=== PATIENT | female | born 1950 | race African-American/Black ===

== ENCOUNTER 2017-05-02 15:55 | Inpatient (IN) | payer OTHER ==
[2017-05-02 18:06] VITALS: BMI 38.7
--- NOTE | 2017-05-02 19:45 | HP ---
Admission [facility] Chief Complaint: I am here for rehab Allergies/Adverse Reactions: Allergies Allergy/AdvReac Type Severity Reaction Status Date / Time Penicillins Allergy Unknown Verified 08/19/11 08:49 quetiapine fumarate Allergy Unknown Verified 08/19/11 08:50 [From Seroquel] History of Present Illness: 66 yo female with hx of alcohol and crack / cocaine dependence. Reports completed detox at [facility] 04/25/17 -05/02/17. PMHX: COPD, DM II, HTN , OA, abdominal hernia, HIV + reports never been on medication. Denies any psychiatric history. Reports hx surgery 02/14/17 for abdominal obstruction currently wears a belly band. Longest period sobriety 5 1/2 years. Denies suicidal / homicidal ideation or suicide attempts. Exam Limitations: No Limitations - Ebola screening Have you traveled outside of the country in the last 21 days: No (N) Have you had contact with anyone from an Ebola affected area: No Have you been sick,other than usual withdrawal symptoms: No Do you have a fever: No - Review of Systems Constitutional: Weakness, Unintentional Wgt. Loss (from surgery on 02/14/17, lost about 30 lbs so far) EENT: reports: Cataracts, Blurred Vision, Other (wears glasses) Respiratory: reports: Shortness of Breath (with stress, when walking fast) Cardiac: reports: No Symptoms Reported GI: reports: No Symptoms Reported : reports: No Symptoms Reported Musculoskeletal: reports: Back Pain, Joint Pain (left knee pending knee replacement), Other (neck from OA) Integumentary: reports: No Symptoms Reported Neuro: reports: No Symptoms reported Endocrine: reports: Change in Weight Hematology: reports: No Symptoms Reported Psychiatric: reports: Orientated x3 Other Systems: Reviewed and Negative Patient History - Patient Medical History Hx Anemia: No Hx Asthma: No Hx Chronic Obstructive Pulmonary Disease (COPD): No Hx Cancer: No Hx Cardiac Disorders: No Hx Congestive Heart Failure: No Hx Hypertension: Yes (Hx of HTN on meds.) Hx Hypercholesterolemia: Yes Hx Pacemaker: No HX Cerebrovascular Accident: No Hx Seizures: No Hx Dementia: Yes Hx Diabetes: Yes (On meds.,) Hx Gastrointestinal Disorders: Yes (Acid reflux) Hx Liver Disease: Yes (Hep C) Hx Genitourinary Disorders: No Hx Sexually Transmitted Disorders: 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) Hx Renal Disease (ESRD): No Hx Thyroid Disease: No Hx Human Immunodeficiency Virus (HIV): No Hx Hepatitis C: Yes Hx Depression: Yes (Not in tx) Hx Suicide Attempt: No Hx Bipolar Disorder: No Hx Schizophrenia: No - Patient Surgical History Past Surgical History: Yes Hx Neurologic Surgery: No Hx Cataract Extraction: No Hx Cardiac Surgery: No Hx Lung Surgery: No Hx Breast Surgery: No Hx Breast Biopsy: No Hx Abdominal Surgery: Yes (Total hysterectomy in 1995 from Cervical CA) Hx Appendectomy: No Hx Cholecystectomy: No Hx Genitourinary Surgery: No Hx Orthopedic Surgery: Yes (Fx L femur in 1988 sx with metal tej) Anesthesia Reaction: No - PPD History Previous Implant?: No Documented Results: Negative w/proof PPD to be Administered?: No - Reproductive History Last Menstrual Period: 09/09/95 - Smoking Cessation Smoking history: Former smoker Have you smoked in the past 12 months: No Hx Chewing Tobacco Use: No Initiated information on smoking cessation: No - Substance & Tx. History Hx Alcohol Use: Yes Hx Substance Use: Yes Substance Use Type: Alcohol, Cocaine Hx Substance Use Treatment: Yes ([facility] - 05/02/17) Family Disease History - Family Disease History Family History: Unable to Obtain (reports no family hx) Admission Physical Exam [facility] - Vital Signs Vital Signs: Vital Signs - 24 hr 05/02/17 18:00 Temperature 97.5 F L Pulse Rate 78 Respiratory 18 Rate Blood Pressure 135/80 - Physical General Appearance: Yes: No Apparent Distress, Nourished, Appropriately Dressed , Obese HEENTM: Yes: EOMI, Hearing grossly Normal, Normal ENT Inspection, Normocephalic , Normal Voice, FERNIE, Pharynx Normal, Tm's normal, Other (wears glasses) Respiratory: Yes: Chest Non-Tender, Lungs Clear, Normal Breath Sounds, No Respiratory Distress, No Accessory Muscle Use Neck: Yes: No masses,lesions,Nodules, Trachea in good position Breast: Yes: Breast Exam Deferred Cardiology: Yes: Regular Rhythm, Regular Rate, S1, S2 Abdominal: Yes: Hernia (abdominal, wears belly hand for support), Surgical Scar (mid abdomen) Genitourinary: Yes: Within Normal Limits Back: Yes: Normal Inspection Musculoskeletal: Yes: Back pain, Other (gait unsteady, chronic neck pain , right knee pain and low back pain d/t OA) Extremities: Yes: Normal Range of Motion, Non-Tender 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, Fully Oriented, Alert, Motor Strength 5/5, Normal Mood/Affect, Normal Response Integumentary: Yes: Normal Color, Dry, Warm Lymphatic: Yes: Within Normal Limits - Diagnostic (1) HIV (human immunodeficiency virus infection) Current Visit: Yes Status: Chronic (2) Osteoarthritis Current Visit: Yes Status: Chronic Qualifiers: Osteoarthritis location: knee Laterality: right (3) Use of cane as ambulatory aid Current Visit: Yes Status: Chronic (4) Abdominal hernia Current Visit: Yes Status: Chronic Qualifiers: Hernia type: other abdominal hernia Obstruction and gangrene presence: without obstruction or gangrene Qualified Code(s): K45.8 - Other specified abdominal hernia without obstruction or gangrene (5) Diabetes mellitus type 2 in obese Current Visit: Yes Status: Chronic (6) Hypertension Current Visit: Yes Status: Chronic Qualifiers: Hypertension type: essential hypertension Qualified Code(s): I10 - Essential (primary) hypertension (7) COPD (chronic obstructive pulmonary disease) Current Visit: Yes Status: Chronic Qualifiers: COPD type: unspecified COPD Qualified Code(s): J44.9 - Chronic obstructive pulmonary disease, unspecified (8) Hyperlipidemia Current Visit: Yes Status: Chronic Qualifiers: Hyperlipidemia type: unspecified Qualified Code(s): E78.5 - Hyperlipidemia , unspecified (9) Alcohol dependence Current Visit: Yes Status: Chronic Qualifiers: Substance use status: uncomplicated Qualified Code(s): F10.20 - Alcohol dependence, uncomplicated (10) Cocaine dependence Current Visit: Yes Status: Chronic BHS Breath Alcohol Content Breath Alcohol Content: 0 Urine Pregancy Test - Result Urine Test Results: Negative- NO Line Present Urine Drug Screen - Results Drug Screen Negative: No Urine Drug Screen Results: BZO-Benzodiazepines, TCA-Tricyclic Antidepress Inpatient Rehab Admission - Initial Determination Are CD services needed?: Yes Free of communicable disease: Yes Not in need of hospitalization: Yes - Rehab Admission Criteria Previous failed treatment: Yes Poor recovery environment: Yes Lacks judgement: Yes
[2017-05-02] MEDS ORDERED: MENTHOL/PHENOL 1 EACH UD MM PRN (20:02)
[2017-05-02] MEDS ORDERED: MAGNESIUM CITRATE 300 ML BOTTLE PO PRN (20:02)
[2017-05-02] MEDS ORDERED: IBUPROFEN 400 MG TABLET (FP) PO PRN (20:02)
[2017-05-02] MEDS ORDERED: P-EPHED 60MG/TRIPROLIDI 2.5MG TABLET PO PRN (20:02)
[2017-05-02] MEDS ORDERED: guaiFENesin/D-METHORPHAN HB 10 ML UNIT-DOSE CUPS PO PRN (20:02)
[2017-05-02] MEDS ORDERED: ALBUTEROL SO4 18 GM HFA INHALER IH SCH (20:15)
[2017-05-02] MEDS: THIAMINE HCL 100 MG TABLET (FP) PO SCH (22:57)
[2017-05-02] MEDS: hydrOXYzine PAMOATE 50 MG CAPSULE (FP) PO PRN (22:58)
[2017-05-02 23:56] LABS: URINE APPEARANCE CLEAR; URINE BILIRUBIN NEGATIVE (NEGATIVE); URINE BLOOD NEGATIVE (NEGATIVE); URINE COLOR YELLOW; URINE GLUCOSE (UA) NEGATIVE (NEGATIVE); URINE KETONE NEGATIVE (NEGATIVE); URINE LEUK ESTERASE NEGATIVE (NEGATIVE); URINE NITRITE NEGATIVE (NEGATIVE); URINE PROTEIN NEGATIVE (NEGATIVE)
[2017-05-03] MEDS: metFORMIN HCL 500 MG TABLET (FP) PO SCH ×2 (06:48→16:57)
[2017-05-03] MEDS: PRENATAL VITAMINS W/ FOLIC ACID TABLET (FP) PO SCH (09:14)
[2017-05-03] MEDS: HYDROCHLOROTHIAZIDE 25 MG TABLET (FP) PO SCH (09:15)
[2017-05-03] MEDS: ACETAMINOPHEN 325 MG TABLET (FP) PO PRN (09:16)
[2017-05-03] MEDS ORDERED: PT OWN MED DRAWER 7, Y5N ONE (09:36)
[2017-05-03 10:13] LABS: HEMATOCRIT 41.5 % (32.4-45.2); HEMOGLOBIN 13.6 GM/dL (10.7-15.3); MCH 29.8 pg (25.7-33.7); MCHC 32.7 g/dl (32.0-36.0); MEAN PLT VOLUME 8.9 fl (7.5-11.1); PLATELET COUNT 403 K/MM3 (134-434); RBC 4.56 M/mm3 (3.60-5.2); RDW 13.9 % (11.6-15.6); WHITE BLOOD COUNT 10.6 K/mm3 (4.0-10.0)
[2017-05-03 10:15] LABS: ALBUMIN 3.5 g/dl (3.4-5.0); ANION GAP 10 (8-16); BLOOD UREA NITROGEN 25 mg/dL (7-18); CALCIUM 9.1 mg/dL (8.5-10.1); CHLORIDE 104 mmol/L (98-107); CO2 26 mmol/L (21-32); GLUCOSE,RANDOM 141 mg/dL (74-106); POTASSIUM 4.5 mmol/L (3.5-5.1); SODIUM 140 mmol/L (136-145)
[2017-05-03 10:21] LABS: ALK PHOS 75 U/L (45-117); BILIRUBIN,TOTAL 0.4 mg/dL (0.2-1.0); CREATININE 0.7 mg/dL (0.55-1.02); SGOT/AST 21 U/L (15-37); SGPT/ALT 29 U/L (12-78); TOT PROT 7.7 g/dl (6.4-8.2)
--- NOTE | 2017-05-03 16:10 | EKG ---
Test Reason : Blood Pressure : / mmHG Vent. Rate : 075 BPM Atrial Rate : 075 BPM P-R Int : 136 ms QRS Dur : 086 ms QT Int : 394 ms P-R-T Axes : 058 054 037 degrees QTc Int : 439 ms NORMAL SINUS RHYTHM NORMAL ECG NO PREVIOUS ECGS AVAILABLE Confirmed by BAM MOYA MD ([id number]) on 05/03/2017 4:10:33 PM Referred By: B Confirmed By:BAM MOYA MD
[2017-05-03] MEDS: hydrOXYzine PAMOATE 50 MG CAPSULE (FP) PO PRN (21:15)
[2017-05-03] MEDS: THIAMINE HCL 100 MG TABLET (FP) PO SCH (21:15)
[2017-05-04] MEDS: metFORMIN HCL 500 MG TABLET (FP) PO SCH ×2 (06:54→16:55)
[2017-05-04] MEDS: ACETAMINOPHEN 325 MG TABLET (FP) PO PRN ×2 (06:55→16:57)
[2017-05-04] MEDS: HYDROCHLOROTHIAZIDE 25 MG TABLET (FP) PO SCH (09:55)
[2017-05-04] MEDS: PRENATAL VITAMINS W/ FOLIC ACID TABLET (FP) PO SCH (09:55)
[2017-05-04] MEDS ORDERED: ALBUTEROL SO4 18 GM HFA INHALER IH ONE (10:29)
[2017-05-04] MEDS ORDERED: PT OWN MED DRAWER 7, Y5N ONE ×2 (11:03→21:42)
--- NOTE | 2017-05-04 11:47 | HP ---
Psychiatrist Admission - Data Date of interview: 05/04/17 Admission source: [facility] Identifying data: This is the first admission to [address] [place] [address] for this 66 years old single mother of 2 (1 son was murdered in 1994),patient resides alone,supported by [facility]. Medical History: Obesity,HTN,DM,Arthritis,H/O Intestinal blockage,HIV+,H/O Cervical cancer,COPD. Psychiatric History: No previous psychiatric history,reports some sleeping difficulties on and off,controlled with Benadryl/Vistaril. Physical/Sexual Abuse/Trauma History: denies Vital Signs: Vital Signs - 24 hr 05/04/17 05/04/17 05/04/17 03:30 07:09 08:35 Temperature 98.0 F Pulse Rate 71 74 Respiratory 18 18 Rate Blood Pressure 117/76 127/77 Allergies/Adverse Reactions: Allergies Allergy/AdvReac Type Severity Reaction Status Date / Time Penicillins Allergy Unknown Verified 08/19/11 08:49 quetiapine fumarate Allergy Unknown Verified 08/19/11 08:50 [From Seroquel] diclofenac Allergy Verified 05/02/17 20:27 Date of last physical exam: 05/02/17 Concur with the findings of this exam: Yes - Substance Abuse/Tx History Hx Alcohol Use: Yes ( very young age) Hx Substance Use: Yes (cocaine on and off for years) Substance Use Type: Alcohol, Cocaine Hx Substance Use Treatment: Yes (longest abstinence 5,5 years) Mental Status Exam - Mental Status Exam Alert and Oriented to: Time, Place, Person Cognitive Function: Grossly Intact Patient Appearance: Well Groomed Mood: Euthymic Affect: Mood Congruent Patient Behavior: Cooperative Speech Pattern: Clear Voice Loudness: Normal Thought Process: Goal Oriented Thought Disorder: Not Present Hallucinations: Denies Suicidal Ideation: Denies Homicidal Ideation: Denies Insight/Judgement: Fair Sleep: Fair Appetite: Good Muscle strength/Tone: Normal Gait/Station: Normal Psychiatric Findings - Problem List ([place] 1, 2,3) (1) Alcohol dependence Current Visit: Yes Status: Chronic Qualifiers: Substance use status: uncomplicated Qualified Code(s): F10.20 - Alcohol dependence, uncomplicated (2) COPD (chronic obstructive pulmonary disease) Current Visit: Yes Status: Chronic Qualifiers: COPD type: unspecified COPD Qualified Code(s): J44.9 - Chronic obstructive pulmonary disease, unspecified (3) Cocaine dependence Current Visit: Yes Status: Chronic (4) Diabetes mellitus type 2 in obese Current Visit: Yes Status: Chronic (5) HIV (human immunodeficiency virus infection) Current Visit: Yes Status: Chronic (6) Hyperlipidemia Current Visit: Yes Status: Chronic Qualifiers: Hyperlipidemia type: unspecified Qualified Code(s): E78.5 - Hyperlipidemia , unspecified (7) Hypertension Current Visit: Yes Status: Chronic Qualifiers: Hypertension type: essential hypertension Qualified Code(s): I10 - Essential (primary) hypertension (8) Substance induced mood disorder Current Visit: Yes Status: Chronic - Initial Treatment Plan Initial Treatment Plan: Vistaril 50 mg po prn for anxiety,insomnia.Will monitor progress.
[2017-05-04] MEDS: hydrOXYzine PAMOATE 50 MG CAPSULE (FP) PO PRN (21:12)
[2017-05-04] MEDS: THIAMINE HCL 100 MG TABLET (FP) PO SCH (21:12)
[2017-05-05] MEDS: metFORMIN HCL 500 MG TABLET (FP) PO SCH ×2 (06:34→16:39)
[2017-05-05] MEDS: ACETAMINOPHEN 325 MG TABLET (FP) PO PRN ×2 (07:26→21:08)
[2017-05-05] MEDS: PRENATAL VITAMINS W/ FOLIC ACID TABLET (FP) PO SCH (09:42)
[2017-05-05] MEDS: HYDROCHLOROTHIAZIDE 25 MG TABLET (FP) PO SCH (09:42)
[2017-05-05] MEDS ORDERED: PT OWN MED DRAWER 7, Y5N ONE (16:35)
[2017-05-05] MEDS: THIAMINE HCL 100 MG TABLET (FP) PO SCH (21:06)
[2017-05-05] MEDS: hydrOXYzine PAMOATE 50 MG CAPSULE (FP) PO PRN (21:08)
[2017-05-06] MEDS: ACETAMINOPHEN 325 MG TABLET (FP) PO PRN ×3 (06:43→21:10)
[2017-05-06] MEDS: metFORMIN HCL 500 MG TABLET (FP) PO SCH ×2 (06:43→16:42)
[2017-05-06] MEDS: HYDROCHLOROTHIAZIDE 25 MG TABLET (FP) PO SCH (10:15)
[2017-05-06] MEDS: PRENATAL VITAMINS W/ FOLIC ACID TABLET (FP) PO SCH (10:15)
[2017-05-06] MEDS: hydrOXYzine PAMOATE 50 MG CAPSULE (FP) PO PRN (21:10)
[2017-05-06] MEDS: THIAMINE HCL 100 MG TABLET (FP) PO SCH (21:10)
[2017-05-07] MEDS: metFORMIN HCL 500 MG TABLET (FP) PO SCH ×2 (06:32→16:37)
[2017-05-07] MEDS: PRENATAL VITAMINS W/ FOLIC ACID TABLET (FP) PO SCH (09:58)
[2017-05-07] MEDS: HYDROCHLOROTHIAZIDE 25 MG TABLET (FP) PO SCH (09:59)
[2017-05-07] MEDS: ALBUTEROL SO4 18 GM HFA INHALER IH PRN (11:00)
[2017-05-07] MEDS: MAGNESIUM HYDROX 2400MG/30ML ORAL SUSPENSION 30 ML CUP PO PRN (16:37)
--- NOTE | 2017-05-07 17:00 | PN ---
Psychiatric Progress Note Vital Signs: Vital Signs Period Temp Pulse Resp BP Sys/Thomas Pulse Ox Last 24 Hr 97.5 F 60-69 18-18 134-137/76-77 Date of Session: 05/07/17 Chief Complaint:: "Chan nervious and having sleeping difficulties." HPI: Patient addressed Alcohol and Cocaine dependence comorbid with Substance induced mood disordr. ROS: Significant for HIV+,COPD,DM. Current Medications: Active Medications Generic Name Dose Route Start Last Admin Trade Name Freq PRN Reason Stop Dose Admin Acetaminophen 650 mg 05/02/17 20:02 05/06/17 21:10 Tylenol - PO 650 mg Q4H PRN Administration FEVER Al Hydroxide/Mg Hydroxide 30 ml 05/02/17 20:02 Mylanta Oral Suspension - PO Q6H PRN DYSPEPSIA Albuterol Sulfate 2 puff 05/06/17 12:54 05/07/17 11:00 Ventolin Hfa Inhaler - IH 2 puff Q4H PRN Administration ASTHMA Eucalyptus/Menthol/Phenol/Sorbitol 1 each 05/02/17 20:02 Cepastat Lozenge - MM Q4H PRN SORE THROAT Gabapentin 100 mg 05/07/17 22:00 Neurontin - PO BID JUVENCIO Guaifenesin 10 ml 05/02/17 20:02 Robitussin Dm - PO Q6H PRN COUGH Hydrochlorothiazide 25 mg 05/03/17 10:00 05/07/17 09:59 Hctz - PO 25 mg DAILY JUVENCIO Administration Hydroxyzine Pamoate 50 mg 05/02/17 20:02 05/06/17 21:10 Vistaril - PO 50 mg Q4H PRN Administration AGITATION Loperamide HCl 4 mg 05/02/17 20:02 Imodium - PO Q6H PRN DIARRHEA Magnesium Citrate 300 ml 05/02/17 20:02 Citroma - PO Q48H PRN CONSTIPATION Magnesium Hydroxide 30 ml 05/02/17 20:02 05/07/17 16:37 Milk Of Magnesia - PO 30 ml DAILY PRN Administration CONSTIPATION Metformin HCl 500 mg 05/03/17 07:00 05/07/17 16:37 Glucophage - PO 500 mg BID@0700,1630 JUVENCIO Administration Multivit/Folic Acid/Iron 1 tab 05/03/17 10:00 05/07/17 09:58 Vitamins (Sjr) - PO 1 tab DAILY JUVENCIO Administration Pseudoephedrine/Triprolidine 1 combo 05/02/17 20:02 Actifed - PO TID PRN NASAL CONGESTION Thiamine HCl 100 mg 05/02/17 22:00 05/06/17 21:10 Vitamin B1 - PO 100 mg HS JUVENCIO Administration Trazodone HCl 50 mg 05/07/17 22:00 Desyrel - PO HS JUVENCIO Current Side Effect: No Lab tests ordered: No Lab tests reviewed: Yes Provider note:: Chart was revuewed,patient was seen today.Medications have been discussed with the patient including side effects,benefits and dose adjustment.Properties of Trazodone and Neurontin have been discussed with the patient .Start Trazodone 50 mg po hs and Neurontin 100 mg po tid. Supportive therapy ,psychoeducation has been provided. Total face to face time:: 30 Mental Status Exam - Mental Status Exam Alert and Oriented to: Time, Place, Person Cognitive Function: Grossly Intact Patient Appearance: Unkempt Mood: Sad, Anxious Affect: Mood Congruent, Labile Patient Behavior: Cooperative Speech Pattern: Clear Voice Loudness: Normal Thought Process: Goal Oriented Thought Disorder: Not Present Hallucinations: Denies Suicidal Ideation: Denies Homicidal Ideation: Denies Insight/Judgement: Fair Sleep: Fair Appetite: Fair Muscle strength/Tone: Normal Gait/Station: Normal Psychiatric Treatment Plan - Problem List (1) Alcohol dependence Current Visit: Yes Qualifiers: Substance use status: uncomplicated Qualified Code(s): F10.20 - Alcohol dependence, uncomplicated (2) COPD (chronic obstructive pulmonary disease) Current Visit: Yes Qualifiers: COPD type: unspecified COPD Qualified Code(s): J44.9 - Chronic obstructive pulmonary disease, unspecified (3) Cocaine dependence Current Visit: Yes (4) Diabetes mellitus type 2 in obese Current Visit: Yes (5) HIV (human immunodeficiency virus infection) Current Visit: Yes (6) Hyperlipidemia Current Visit: Yes Qualifiers: Hyperlipidemia type: unspecified Qualified Code(s): E78.5 - Hyperlipidemia , unspecified (7) Hypertension Current Visit: Yes Qualifiers: Hypertension type: essential hypertension Qualified Code(s): I10 - Essential (primary) hypertension (8) Substance induced mood disorder Current Visit: Yes
[2017-05-07] MEDS: GABAPENTIN 100 MG CAPSULE (FP) PO SCH (21:20)
[2017-05-07] MEDS: traZODone HCL 50 MG TABLET (FP) PO SCH (21:20)
[2017-05-07] MEDS: THIAMINE HCL 100 MG TABLET (FP) PO SCH (21:20)
[2017-05-07] MEDS: ACETAMINOPHEN 325 MG TABLET (FP) PO PRN (21:55)
[2017-05-08] MEDS: metFORMIN HCL 500 MG TABLET (FP) PO SCH ×2 (06:36→17:09)
[2017-05-08] MEDS: ALBUTEROL SO4 18 GM HFA INHALER IH PRN (09:10)
[2017-05-08] MEDS: GABAPENTIN 100 MG CAPSULE (FP) PO SCH ×2 (10:12→21:14)
[2017-05-08] MEDS: PRENATAL VITAMINS W/ FOLIC ACID TABLET (FP) PO SCH (10:12)
[2017-05-08] MEDS: HYDROCHLOROTHIAZIDE 25 MG TABLET (FP) PO SCH (10:12)
[2017-05-08] MEDS: ACETAMINOPHEN 325 MG TABLET (FP) PO PRN (10:13)
[2017-05-08] MEDS: traZODone HCL 50 MG TABLET (FP) PO SCH (21:14)
[2017-05-08] MEDS: THIAMINE HCL 100 MG TABLET (FP) PO SCH (21:14)
[2017-05-09] MEDS: metFORMIN HCL 500 MG TABLET (FP) PO SCH ×2 (07:03→16:49)
[2017-05-09] MEDS: HYDROCHLOROTHIAZIDE 25 MG TABLET (FP) PO SCH (09:57)
[2017-05-09] MEDS: PRENATAL VITAMINS W/ FOLIC ACID TABLET (FP) PO SCH (09:57)
[2017-05-09] MEDS: GABAPENTIN 100 MG CAPSULE (FP) PO SCH ×2 (09:58→21:58)
[2017-05-09] MEDS: MAG HYDROX/AL HYDROX/SIMETH 30 ML UNIT-DOSE CUP PO PRN (11:03)
[2017-05-09] MEDS: traZODone HCL 50 MG TABLET (FP) PO SCH (21:58)
[2017-05-09] MEDS: THIAMINE HCL 100 MG TABLET (FP) PO SCH (21:58)
[2017-05-10] MEDS: metFORMIN HCL 500 MG TABLET (FP) PO SCH ×2 (06:20→16:59)
[2017-05-10] MEDS: HYDROCHLOROTHIAZIDE 25 MG TABLET (FP) PO SCH (10:17)
[2017-05-10] MEDS: PRENATAL VITAMINS W/ FOLIC ACID TABLET (FP) PO SCH (10:18)
[2017-05-10] MEDS: GABAPENTIN 100 MG CAPSULE (FP) PO SCH ×2 (10:18→21:29)
[2017-05-10] MEDS: ACETAMINOPHEN 325 MG TABLET (FP) PO PRN ×2 (10:20→21:30)
[2017-05-10] MEDS: LOPERAMIDE HCL 2 MG CAPSULE PO PRN ×2 (10:21→22:12)
[2017-05-10] MEDS: ALBUTEROL SO4 18 GM HFA INHALER IH PRN (10:22)
[2017-05-10] MEDS: traZODone HCL 50 MG TABLET (FP) PO SCH (21:29)
[2017-05-10] MEDS: THIAMINE HCL 100 MG TABLET (FP) PO SCH (21:29)
[2017-05-11] MEDS ORDERED: PT OWN MED DRAWER 7, Y5N ONE (03:12)
[2017-05-11] MEDS: metFORMIN HCL 500 MG TABLET (FP) PO SCH ×2 (06:31→17:20)
[2017-05-11] MEDS: GABAPENTIN 100 MG CAPSULE (FP) PO SCH ×2 (10:12→21:30)
[2017-05-11] MEDS: PRENATAL VITAMINS W/ FOLIC ACID TABLET (FP) PO SCH (10:12)
[2017-05-11] MEDS: HYDROCHLOROTHIAZIDE 25 MG TABLET (FP) PO SCH (10:13)
[2017-05-11] MEDS: ACETAMINOPHEN 325 MG TABLET (FP) PO PRN ×2 (10:14→21:31)
[2017-05-11] MEDS: ALBUTEROL SO4 18 GM HFA INHALER IH PRN (20:44)
[2017-05-11] MEDS: THIAMINE HCL 100 MG TABLET (FP) PO SCH (21:30)
[2017-05-11] MEDS: traZODone HCL 50 MG TABLET (FP) PO SCH (21:30)
[2017-05-12] MEDS: metFORMIN HCL 500 MG TABLET (FP) PO SCH ×2 (06:25→17:00)
[2017-05-12] MEDS: HYDROCHLOROTHIAZIDE 25 MG TABLET (FP) PO SCH (10:12)
[2017-05-12] MEDS: GABAPENTIN 100 MG CAPSULE (FP) PO SCH ×2 (10:12→21:16)
[2017-05-12] MEDS: PRENATAL VITAMINS W/ FOLIC ACID TABLET (FP) PO SCH (10:12)
[2017-05-12] MEDS: ACETAMINOPHEN 325 MG TABLET (FP) PO PRN ×2 (10:13→21:17)
[2017-05-12] MEDS: ALBUTEROL SO4 18 GM HFA INHALER IH PRN (15:09)
[2017-05-12] MEDS: traZODone HCL 50 MG TABLET (FP) PO SCH (21:16)
[2017-05-12] MEDS: THIAMINE HCL 100 MG TABLET (FP) PO SCH (21:18)
[2017-05-13] MEDS: ALBUTEROL SO4 18 GM HFA INHALER IH PRN ×2 (07:05→11:26)
[2017-05-13] MEDS: metFORMIN HCL 500 MG TABLET (FP) PO SCH ×2 (07:06→17:05)
[2017-05-13] MEDS: HYDROCHLOROTHIAZIDE 25 MG TABLET (FP) PO SCH (10:05)
[2017-05-13] MEDS: PRENATAL VITAMINS W/ FOLIC ACID TABLET (FP) PO SCH (10:05)
[2017-05-13] MEDS: GABAPENTIN 100 MG CAPSULE (FP) PO SCH ×2 (10:05→21:23)
[2017-05-13] MEDS: ACETAMINOPHEN 325 MG TABLET (FP) PO PRN (10:07)
[2017-05-13] MEDS: THIAMINE HCL 100 MG TABLET (FP) PO SCH (21:23)
[2017-05-13] MEDS: traZODone HCL 50 MG TABLET (FP) PO SCH (21:23)
[2017-05-14] MEDS: metFORMIN HCL 500 MG TABLET (FP) PO SCH ×2 (06:55→17:18)
[2017-05-14] MEDS: ALBUTEROL SO4 18 GM HFA INHALER IH PRN (08:55)
[2017-05-14] MEDS: ACETAMINOPHEN 325 MG TABLET (FP) PO PRN ×2 (08:58→21:25)
[2017-05-14] MEDS: GABAPENTIN 100 MG CAPSULE (FP) PO SCH ×2 (10:09→21:24)
[2017-05-14] MEDS: PRENATAL VITAMINS W/ FOLIC ACID TABLET (FP) PO SCH (10:09)
[2017-05-14] MEDS: HYDROCHLOROTHIAZIDE 25 MG TABLET (FP) PO SCH (10:09)
[2017-05-14] MEDS: THIAMINE HCL 100 MG TABLET (FP) PO SCH (21:22)
[2017-05-14] MEDS: traZODone HCL 50 MG TABLET (FP) PO SCH (21:23)
[2017-05-15] MEDS: metFORMIN HCL 500 MG TABLET (FP) PO SCH ×2 (06:42→16:57)
[2017-05-15] MEDS: PRENATAL VITAMINS W/ FOLIC ACID TABLET (FP) PO SCH (10:30)
[2017-05-15] MEDS: HYDROCHLOROTHIAZIDE 25 MG TABLET (FP) PO SCH (10:30)
[2017-05-15] MEDS: GABAPENTIN 100 MG CAPSULE (FP) PO SCH ×2 (10:31→22:58)
[2017-05-15] MEDS: ACETAMINOPHEN 325 MG TABLET (FP) PO PRN ×2 (10:33→19:02)
[2017-05-15] MEDS: ALBUTEROL SO4 18 GM HFA INHALER IH PRN (19:00)
[2017-05-15] MEDS ORDERED: PT OWN MED DRAWER 7, Y5N ONE (19:01)
[2017-05-15] MEDS: traZODone HCL 50 MG TABLET (FP) PO SCH (22:58)
[2017-05-15] MEDS: THIAMINE HCL 100 MG TABLET (FP) PO SCH (22:58)
[2017-05-16] MEDS: metFORMIN HCL 500 MG TABLET (FP) PO SCH ×2 (07:06→17:25)
[2017-05-16] MEDS: HYDROCHLOROTHIAZIDE 25 MG TABLET (FP) PO SCH (10:04)
[2017-05-16] MEDS: GABAPENTIN 100 MG CAPSULE (FP) PO SCH ×3 (10:04→21:35)
[2017-05-16] MEDS: PRENATAL VITAMINS W/ FOLIC ACID TABLET (FP) PO SCH (10:04)
[2017-05-16] MEDS: ACETAMINOPHEN 325 MG TABLET (FP) PO PRN (10:06)
[2017-05-16] MEDS ORDERED: COLLOIDAL OATMEAL 1 BAR EACH TP PRN (12:45)
--- NOTE | 2017-05-16 12:57 | PN ---
BHS Progress Note (SOAP) Subjective: C/O CHRONIC PAIN 2/2 TRAUMA, DRY SKIN Objective: 05/16/17 12:56 Vital Signs - 24 hr 05/16/17 05/16/17 05/16/17 00:30 03:30 07:24 Temperature 97.7 F Pulse Rate 67 Respiratory 18 18 18 Rate Blood Pressure 124/79 05/16/17 09:49 Temperature Pulse Rate 68 Respiratory Rate Blood Pressure 120/73 Laboratory Tests 05/02/17 05/02/17 05/02/17 06:00 06:00 06:00 WBC 10.6 H RBC 4.56 Hgb 13.6 Hct 41.5 MCV 91.0 MCH 29.8 MCHC 32.7 RDW 13.9 Plt Count 403 D MPV 8.9 Sodium 140 Potassium 4.5 Chloride 104 Carbon Dioxide 26 Anion Gap 10 BUN 25 H Creatinine 0.7 Creat Clearance w eGFR > 60 POC Glucometer Random Glucose 141 H Calcium 9.1 Total Bilirubin 0.4 D AST 21 ALT 29 Alkaline Phosphatase 75 Total Protein 7.7 Albumin 3.5 Urine Color Urine Appearance Urine pH Ur Specific [place] Urine Protein Urine Glucose (UA) Urine Ketones Urine Blood Urine Nitrite Urine Bilirubin Urine Urobilinogen Ur Leukocyte Esterase RPR Titer Nonreactive 05/02/17 05/03/17 05/03/17 23:40 06:47 16:57 WBC RBC Hgb Hct MCV MCH MCHC RDW Plt Count MPV Sodium Potassium Chloride Carbon Dioxide Anion Gap BUN Creatinine Creat Clearance w eGFR POC Glucometer 155 125 Random Glucose Calcium Total Bilirubin AST ALT Alkaline Phosphatase Total Protein Albumin Urine Color Yellow Urine Appearance Clear Urine pH 7.0 D Ur Specific [place] 1.024 Urine Protein Negative Urine Glucose (UA) Negative Urine Ketones Negative Urine Blood Negative Urine Nitrite Negative Urine Bilirubin Negative Urine Urobilinogen 2.0 H Ur Leukocyte Esterase Negative RPR Titer 05/04/17 05/04/17 05/05/17 06:53 16:56 06:34 WBC RBC Hgb Hct MCV MCH MCHC RDW Plt Count MPV Sodium Potassium Chloride Carbon Dioxide Anion Gap BUN Creatinine Creat Clearance w eGFR POC Glucometer 174 134 117 Random Glucose Calcium Total Bilirubin AST ALT Alkaline Phosphatase Total Protein Albumin Urine Color Urine Appearance Urine pH Ur Specific [place] Urine Protein Urine Glucose (UA) Urine Ketones Urine Blood Urine Nitrite Urine Bilirubin Urine Urobilinogen Ur Leukocyte Esterase RPR Titer 05/05/17 05/06/17 05/06/17 16:38 06:42 16:41 WBC RBC Hgb Hct MCV MCH MCHC RDW Plt Count MPV Sodium Potassium Chloride Carbon Dioxide Anion Gap BUN Creatinine Creat Clearance w eGFR POC Glucometer 95 129 144 Random Glucose Calcium Total Bilirubin AST ALT Alkaline Phosphatase Total Protein Albumin Urine Color Urine Appearance Urine pH Ur Specific [place] Urine Protein Urine Glucose (UA) Urine Ketones Urine Blood Urine Nitrite Urine Bilirubin Urine Urobilinogen Ur Leukocyte Esterase RPR Titer 05/07/17 05/07/17 05/08/17 06:31 16:36 06:35 WBC RBC Hgb Hct MCV MCH MCHC RDW Plt Count MPV Sodium Potassium Chloride Carbon Dioxide Anion Gap BUN Creatinine Creat Clearance w eGFR POC Glucometer 134 147 148 Random Glucose Calcium Total Bilirubin AST ALT Alkaline Phosphatase Total Protein Albumin Urine Color Urine Appearance Urine pH Ur Specific [place] Urine Protein Urine Glucose (UA) Urine Ketones Urine Blood Urine Nitrite Urine Bilirubin Urine Urobilinogen Ur Leukocyte Esterase RPR Titer 05/08/17 05/09/17 05/09/17 17:09 07:03 16:48 WBC RBC Hgb Hct MCV MCH MCHC RDW Plt Count MPV Sodium Potassium Chloride Carbon Dioxide Anion Gap BUN Creatinine Creat Clearance w eGFR POC Glucometer 146 130 120 Random Glucose Calcium Total Bilirubin AST ALT Alkaline Phosphatase Total Protein Albumin Urine Color Urine Appearance Urine pH Ur Specific [place] Urine Protein Urine Glucose (UA) Urine Ketones Urine Blood Urine Nitrite Urine Bilirubin Urine Urobilinogen Ur Leukocyte Esterase RPR Titer 05/10/17 05/11/17 05/11/17 06:20 06:32 17:19 WBC RBC Hgb Hct MCV MCH MCHC RDW Plt Count MPV Sodium Potassium Chloride Carbon Dioxide Anion Gap BUN Creatinine Creat Clearance w eGFR POC Glucometer 135 126 136 Random Glucose Calcium Total Bilirubin AST ALT Alkaline Phosphatase Total Protein Albumin Urine Color Urine Appearance Urine pH Ur Specific [place] Urine Protein Urine Glucose (UA) Urine Ketones Urine Blood Urine Nitrite Urine Bilirubin Urine Urobilinogen Ur Leukocyte Esterase RPR Titer 05/12/17 05/12/17 05/13/17 06:24 17:04 07:04 WBC RBC Hgb Hct MCV MCH MCHC RDW Plt Count MPV Sodium Potassium Chloride Carbon Dioxide Anion Gap BUN Creatinine Creat Clearance w eGFR POC Glucometer 126 144 145 Random Glucose Calcium Total Bilirubin AST ALT Alkaline Phosphatase Total Protein Albumin Urine Color Urine Appearance Urine pH Ur Specific [place] Urine Protein Urine Glucose (UA) Urine Ketones Urine Blood Urine Nitrite Urine Bilirubin Urine Urobilinogen Ur Leukocyte Esterase RPR Titer 05/13/17 05/16/17 17:05 07:05 WBC RBC Hgb Hct MCV MCH MCHC RDW Plt Count MPV Sodium Potassium Chloride Carbon Dioxide Anion Gap BUN Creatinine Creat Clearance w eGFR POC Glucometer 119 143 Random Glucose Calcium Total Bilirubin AST ALT Alkaline Phosphatase Total Protein Albumin Urine Color Urine Appearance Urine pH Ur Specific [place] Urine Protein Urine Glucose (UA) Urine Ketones Urine Blood Urine Nitrite Urine Bilirubin Urine Urobilinogen Ur Leukocyte Esterase RPR Titer Assessment: 05/16/17 12:57 CHORINIC PAIN - LIDODERM PATCH, NAPROXEN, INCREASE NBEURONTIN, AVEENO SOAP AND LACHYDRIN FOR DRY SKIN
[2017-05-16] MEDS ORDERED: NAPROXEN 500 MG TABLET (FP) PO SCH (13:00)
[2017-05-16] MEDS: PANTOPRAZOLE 40 MG TABLET (FP) PO SCH (13:49)
[2017-05-16] MEDS: LIDOCAINE 5% TOPICAL PATCH TP SCH (13:51)
[2017-05-16] MEDS: MAG HYDROX/AL HYDROX/SIMETH 30 ML UNIT-DOSE CUP PO PRN (13:54)
[2017-05-16] MEDS: MAGNESIUM HYDROX 2400MG/30ML ORAL SUSPENSION 30 ML CUP PO PRN (18:40)
[2017-05-16] MEDS: THIAMINE HCL 100 MG TABLET (FP) PO SCH (21:35)
[2017-05-16] MEDS: AMITRIPTYLINE HCL 25 MG TABLET (FP) PO SCH (21:36)
[2017-05-16] MEDS: traZODone HCL 50 MG TABLET (FP) PO SCH (21:36)
[2017-05-16] MEDS: LIDOCAINE PATCH REMOVAL MC SCH (21:36)
[2017-05-17] MEDS: GABAPENTIN 100 MG CAPSULE (FP) PO SCH ×3 (06:25→22:16)
[2017-05-17] MEDS: metFORMIN HCL 500 MG TABLET (FP) PO SCH ×2 (07:40→17:18)
[2017-05-17] MEDS: PRENATAL VITAMINS W/ FOLIC ACID TABLET (FP) PO SCH (10:07)
[2017-05-17] MEDS: HYDROCHLOROTHIAZIDE 25 MG TABLET (FP) PO SCH (10:07)
[2017-05-17] MEDS: PANTOPRAZOLE 40 MG TABLET (FP) PO SCH (10:07)
[2017-05-17] MEDS: LIDOCAINE 5% TOPICAL PATCH TP SCH (10:07)
[2017-05-17] MEDS: MAGNESIUM HYDROX 2400MG/30ML ORAL SUSPENSION 30 ML CUP PO PRN (18:55)
[2017-05-17] MEDS: AMMONIUM LACTATE 12% LOTION 225 GM BOTTLE TP PRN (18:55)
[2017-05-17] MEDS: traZODone HCL 50 MG TABLET (FP) PO SCH (22:16)
[2017-05-17] MEDS: AMITRIPTYLINE HCL 25 MG TABLET (FP) PO SCH ×2 (22:16→22:58)
[2017-05-17] MEDS: THIAMINE HCL 100 MG TABLET (FP) PO SCH (22:16)
[2017-05-17] MEDS: LIDOCAINE PATCH REMOVAL MC SCH (22:18)
[2017-05-18] MEDS: GABAPENTIN 100 MG CAPSULE (FP) PO SCH ×3 (06:25→21:18)
[2017-05-18] MEDS: metFORMIN HCL 500 MG TABLET (FP) PO SCH ×2 (06:25→16:55)
[2017-05-18] MEDS: PRENATAL VITAMINS W/ FOLIC ACID TABLET (FP) PO SCH (10:17)
[2017-05-18] MEDS: HYDROCHLOROTHIAZIDE 25 MG TABLET (FP) PO SCH (10:17)
[2017-05-18] MEDS: PANTOPRAZOLE 40 MG TABLET (FP) PO SCH (10:17)
[2017-05-18] MEDS: LIDOCAINE 5% TOPICAL PATCH TP SCH (10:17)
[2017-05-18] MEDS: ACETAMINOPHEN 325 MG TABLET (FP) PO PRN ×2 (10:19→21:19)
[2017-05-18] MEDS ORDERED: ACYCLOVIR 400 MG TABLET PO SCH (14:00)
[2017-05-18] MEDS ORDERED: ACYCLOVIR 800 MG TABLET PO SCH (14:00)
--- NOTE | 2017-05-18 15:46 | PN ---
S Progress Note Note: Patient states that she takes a lot of meds at night and she is asking to discontinue Elavil reports felling drowsy.
[2017-05-18] MEDS: MAGNESIUM HYDROX 2400MG/30ML ORAL SUSPENSION 30 ML CUP PO PRN (16:05)
[2017-05-18] MEDS ORDERED: valACYclovir HCL 500 MG TABLET (FP) PO ONE (16:15)
[2017-05-18] MEDS: THIAMINE HCL 100 MG TABLET (FP) PO SCH (21:19)
[2017-05-18] MEDS: traZODone HCL 50 MG TABLET (FP) PO SCH (21:19)
[2017-05-18] MEDS: LIDOCAINE PATCH REMOVAL MC SCH (21:20)
[2017-05-19] MEDS: GABAPENTIN 100 MG CAPSULE (FP) PO SCH ×3 (06:51→22:04)
[2017-05-19] MEDS: metFORMIN HCL 500 MG TABLET (FP) PO SCH ×2 (06:51→17:21)
[2017-05-19] MEDS: PANTOPRAZOLE 40 MG TABLET (FP) PO SCH (10:12)
[2017-05-19] MEDS: HYDROCHLOROTHIAZIDE 25 MG TABLET (FP) PO SCH (10:12)
[2017-05-19] MEDS: PRENATAL VITAMINS W/ FOLIC ACID TABLET (FP) PO SCH (10:12)
[2017-05-19] MEDS: LIDOCAINE 5% TOPICAL PATCH TP SCH (10:12)
[2017-05-19] MEDS: LIDOCAINE PATCH REMOVAL MC SCH (22:04)
[2017-05-19] MEDS: traZODone HCL 50 MG TABLET (FP) PO SCH (22:04)
[2017-05-19] MEDS: THIAMINE HCL 100 MG TABLET (FP) PO SCH (22:04)
[2017-05-20] MEDS: GABAPENTIN 100 MG CAPSULE (FP) PO SCH ×3 (06:52→21:39)
[2017-05-20] MEDS: metFORMIN HCL 500 MG TABLET (FP) PO SCH ×2 (06:53→17:52)
[2017-05-20] MEDS: ACETAMINOPHEN 325 MG TABLET (FP) PO PRN (06:56)
--- NOTE | 2017-05-20 07:09 | PN ---
S Progress Note Note: client seen for c/o genital herpes out break. p- valtrex 1gm po daily x 3 days ( this is the way client takes at home)
[2017-05-20] MEDS: HYDROCHLOROTHIAZIDE 25 MG TABLET (FP) PO SCH (10:08)
[2017-05-20] MEDS: PRENATAL VITAMINS W/ FOLIC ACID TABLET (FP) PO SCH (10:08)
[2017-05-20] MEDS: valACYclovir HCL 500 MG TABLET (FP) PO SCH (10:08)
[2017-05-20] MEDS: LIDOCAINE 5% TOPICAL PATCH TP SCH (10:09)
[2017-05-20] MEDS: PANTOPRAZOLE 40 MG TABLET (FP) PO SCH (10:09)
[2017-05-20] MEDS: THIAMINE HCL 100 MG TABLET (FP) PO SCH (21:39)
[2017-05-20] MEDS: traZODone HCL 50 MG TABLET (FP) PO SCH (21:39)
[2017-05-20] MEDS: LIDOCAINE PATCH REMOVAL MC SCH (21:40)
[2017-05-21] MEDS: metFORMIN HCL 500 MG TABLET (FP) PO SCH ×2 (06:48→17:25)
[2017-05-21] MEDS: GABAPENTIN 100 MG CAPSULE (FP) PO SCH ×3 (06:48→21:22)
[2017-05-21] MEDS: HYDROCHLOROTHIAZIDE 25 MG TABLET (FP) PO SCH (10:07)
[2017-05-21] MEDS: valACYclovir HCL 500 MG TABLET (FP) PO SCH (10:08)
[2017-05-21] MEDS: PANTOPRAZOLE 40 MG TABLET (FP) PO SCH (10:09)
[2017-05-21] MEDS: PRENATAL VITAMINS W/ FOLIC ACID TABLET (FP) PO SCH (10:09)
[2017-05-21] MEDS: LIDOCAINE 5% TOPICAL PATCH TP SCH (10:10)
[2017-05-21] MEDS: ACETAMINOPHEN 325 MG TABLET (FP) PO PRN (15:40)
[2017-05-21] MEDS: THIAMINE HCL 100 MG TABLET (FP) PO SCH (21:22)
[2017-05-21] MEDS: traZODone HCL 50 MG TABLET (FP) PO SCH (21:22)
[2017-05-21] MEDS: LIDOCAINE PATCH REMOVAL MC SCH (21:23)
[2017-05-22] MEDS: GABAPENTIN 100 MG CAPSULE (FP) PO SCH ×3 (06:23→21:23)
[2017-05-22] MEDS: metFORMIN HCL 500 MG TABLET (FP) PO SCH ×2 (06:24→17:25)
[2017-05-22] MEDS: HYDROCHLOROTHIAZIDE 25 MG TABLET (FP) PO SCH (10:06)
[2017-05-22] MEDS: valACYclovir HCL 500 MG TABLET (FP) PO SCH (10:06)
[2017-05-22] MEDS: LIDOCAINE 5% TOPICAL PATCH TP SCH (10:07)
[2017-05-22] MEDS: PRENATAL VITAMINS W/ FOLIC ACID TABLET (FP) PO SCH (10:07)
[2017-05-22] MEDS: ACETAMINOPHEN 325 MG TABLET (FP) PO PRN (10:08)
[2017-05-22] MEDS: traZODone HCL 50 MG TABLET (FP) PO SCH (21:23)
[2017-05-22] MEDS: THIAMINE HCL 100 MG TABLET (FP) PO SCH (21:23)
[2017-05-22] MEDS: LIDOCAINE PATCH REMOVAL MC SCH (21:24)
[2017-05-23] MEDS: GABAPENTIN 100 MG CAPSULE (FP) PO SCH ×3 (06:33→21:32)
[2017-05-23] MEDS: metFORMIN HCL 500 MG TABLET (FP) PO SCH ×2 (06:33→17:40)
[2017-05-23] MEDS ORDERED: PT OWN MED DRAWER 7, Y5N ONE (07:05)
[2017-05-23] MEDS: ALBUTEROL SO4 18 GM HFA INHALER IH PRN (07:05)
[2017-05-23] MEDS: PRENATAL VITAMINS W/ FOLIC ACID TABLET (FP) PO SCH (09:53)
[2017-05-23] MEDS: HYDROCHLOROTHIAZIDE 25 MG TABLET (FP) PO SCH (09:53)
[2017-05-23] MEDS: LIDOCAINE 5% TOPICAL PATCH TP SCH (09:53)
[2017-05-23] MEDS: ACETAMINOPHEN 325 MG TABLET (FP) PO PRN (09:55)
[2017-05-23] MEDS: traZODone HCL 50 MG TABLET (FP) PO SCH (21:32)
[2017-05-23] MEDS: THIAMINE HCL 100 MG TABLET (FP) PO SCH (21:33)
[2017-05-23] MEDS: LIDOCAINE PATCH REMOVAL MC SCH (21:33)
[2017-05-24] MEDS: GABAPENTIN 100 MG CAPSULE (FP) PO SCH ×3 (07:16→21:27)
[2017-05-24] MEDS: metFORMIN HCL 500 MG TABLET (FP) PO SCH ×2 (07:17→17:13)
[2017-05-24] MEDS: ACETAMINOPHEN 325 MG TABLET (FP) PO PRN (07:18)
[2017-05-24] MEDS: HYDROCHLOROTHIAZIDE 25 MG TABLET (FP) PO SCH (09:39)
[2017-05-24] MEDS: PRENATAL VITAMINS W/ FOLIC ACID TABLET (FP) PO SCH (09:40)
[2017-05-24] MEDS: MAGNESIUM HYDROX 2400MG/30ML ORAL SUSPENSION 30 ML CUP PO PRN (09:41)
[2017-05-24] MEDS: LIDOCAINE 5% TOPICAL PATCH TP SCH (11:00)
--- NOTE | 2017-05-24 14:49 | PN ---
S Progress Note Note: Patient c/o of small abrasion on the right 5th toes and bilateral shoulder pain and neck stiffness, reports this is an ongoing problem and she uses Tizanidie for pain relief. Vital Signs Temperature 98.5 F 05/24/17 07:32 Pulse Rate 85 05/24/17 09:10 Respiratory Rate 18 05/24/17 07:32 Blood Pressure 158/90 05/24/17 09:10 O2 Sat by Pulse Oximetry (%) Laboratory Last Values POC Glucometer 132 UNITS (80-120) 05/24/17 06:30 ROS: Patient denies fatigue, SOB, chest pain or dyspnea reports small brasion on right 5th toe, b/t shoulder pain and neck stiffness, denies weakness , paresthesia or new onset of incontinence or headache Assessment: Patient AOx3, self directing in no apparent distress Full ROM on all extremities, + tenderness on b/t shoulders, mild stiffness when rotating the neck to the left CREMATOR I -XII intact + brasion on right 5th toe Plan: Continue to ambulate Tizanidie 2mg TID PRN Lidocaine patch PRN Bacitracin Continue to monitor
[2017-05-24] MEDS: THIAMINE HCL 100 MG TABLET (FP) PO SCH (21:27)
[2017-05-24] MEDS: traZODone HCL 50 MG TABLET (FP) PO SCH (21:27)
[2017-05-24] MEDS: LIDOCAINE PATCH REMOVAL MC SCH (21:29)
[2017-05-24] MEDS ORDERED: PT OWN MED DRAWER 7, Y5N ONE (21:29)
[2017-05-24] MEDS: TIZANIDINE HCL 2 MG TABLET PO PRN (21:29)
[2017-05-25] MEDS: metFORMIN HCL 500 MG TABLET (FP) PO SCH ×2 (06:33→17:15)
[2017-05-25] MEDS: GABAPENTIN 100 MG CAPSULE (FP) PO SCH ×3 (06:33→21:20)
[2017-05-25] MEDS: ACETAMINOPHEN 325 MG TABLET (FP) PO PRN ×2 (06:34→13:26)
[2017-05-25] MEDS: ALBUTEROL SO4 18 GM HFA INHALER IH PRN (08:53)
[2017-05-25] MEDS: LIDOCAINE 5% TOPICAL PATCH TP SCH (09:50)
[2017-05-25] MEDS: AMMONIUM LACTATE 12% LOTION 225 GM BOTTLE TP PRN (09:51)
[2017-05-25] MEDS: PRENATAL VITAMINS W/ FOLIC ACID TABLET (FP) PO SCH (09:51)
[2017-05-25] MEDS: HYDROCHLOROTHIAZIDE 25 MG TABLET (FP) PO SCH (09:51)
[2017-05-25] MEDS: TIZANIDINE HCL 2 MG TABLET PO PRN ×2 (09:52→19:45)
[2017-05-25] MEDS ORDERED: PT OWN MED DRAWER 7, Y5N ONE ×2 (09:53→19:45)
[2017-05-25] MEDS: THIAMINE HCL 100 MG TABLET (FP) PO SCH (21:20)
[2017-05-25] MEDS: traZODone HCL 50 MG TABLET (FP) PO SCH (21:20)
[2017-05-25] MEDS: LIDOCAINE PATCH REMOVAL MC SCH (22:36)
[2017-05-26] MEDS: GABAPENTIN 100 MG CAPSULE (FP) PO SCH ×3 (06:29→21:19)
[2017-05-26] MEDS: metFORMIN HCL 500 MG TABLET (FP) PO SCH ×2 (06:30→17:16)
[2017-05-26] MEDS: TIZANIDINE HCL 2 MG TABLET PO PRN ×2 (10:11→21:21)
[2017-05-26] MEDS: LIDOCAINE 5% TOPICAL PATCH TP SCH (10:11)
[2017-05-26] MEDS: PRENATAL VITAMINS W/ FOLIC ACID TABLET (FP) PO SCH (10:11)
[2017-05-26] MEDS: HYDROCHLOROTHIAZIDE 25 MG TABLET (FP) PO SCH (10:11)
[2017-05-26] MEDS: ACETAMINOPHEN 325 MG TABLET (FP) PO PRN (10:12)
[2017-05-26] MEDS: THIAMINE HCL 100 MG TABLET (FP) PO SCH (21:19)
[2017-05-26] MEDS: traZODone HCL 50 MG TABLET (FP) PO SCH (21:19)
[2017-05-26] MEDS ORDERED: PT OWN MED DRAWER 7, Y5N ONE (21:20)
[2017-05-26] MEDS: BACITRACIN 0.9 GM PACKET TP SCH (21:20)
[2017-05-26] MEDS: LIDOCAINE PATCH REMOVAL MC SCH (21:21)
[2017-05-27] MEDS: GABAPENTIN 100 MG CAPSULE (FP) PO SCH ×3 (06:39→21:29)
[2017-05-27] MEDS: metFORMIN HCL 500 MG TABLET (FP) PO SCH ×2 (06:39→17:25)
[2017-05-27] MEDS: BACITRACIN 0.9 GM PACKET TP SCH ×2 (09:52→21:29)
[2017-05-27] MEDS: LIDOCAINE 5% TOPICAL PATCH TP SCH (09:52)
[2017-05-27] MEDS: TIZANIDINE HCL 2 MG TABLET PO PRN ×2 (09:52→21:29)
[2017-05-27] MEDS: HYDROCHLOROTHIAZIDE 25 MG TABLET (FP) PO SCH (09:52)
[2017-05-27] MEDS: ACETAMINOPHEN 325 MG TABLET (FP) PO PRN (09:53)
[2017-05-27] MEDS: PRENATAL VITAMINS W/ FOLIC ACID TABLET (FP) PO SCH (09:53)
[2017-05-27] MEDS: traZODone HCL 50 MG TABLET (FP) PO SCH (21:29)
[2017-05-27] MEDS: LIDOCAINE PATCH REMOVAL MC SCH (21:30)
[2017-05-27] MEDS: THIAMINE HCL 100 MG TABLET (FP) PO SCH (21:30)
[2017-05-28] MEDS: metFORMIN HCL 500 MG TABLET (FP) PO SCH ×2 (07:03→17:06)
[2017-05-28] MEDS: GABAPENTIN 100 MG CAPSULE (FP) PO SCH ×3 (07:03→21:16)
[2017-05-28] MEDS: AMMONIUM LACTATE 12% LOTION 225 GM BOTTLE TP PRN (07:06)
[2017-05-28] MEDS ORDERED: PT OWN MED DRAWER 7, Y5N ONE ×2 (07:07→13:41)
[2017-05-28] MEDS: HYDROCHLOROTHIAZIDE 25 MG TABLET (FP) PO SCH (10:04)
[2017-05-28] MEDS: BACITRACIN 0.9 GM PACKET TP SCH ×2 (10:04→21:15)
[2017-05-28] MEDS: LIDOCAINE 5% TOPICAL PATCH TP SCH (10:05)
[2017-05-28] MEDS: PRENATAL VITAMINS W/ FOLIC ACID TABLET (FP) PO SCH (10:05)
[2017-05-28] MEDS: TIZANIDINE HCL 2 MG TABLET PO PRN ×2 (13:40→21:15)
[2017-05-28] MEDS: LIDOCAINE PATCH REMOVAL MC SCH (21:16)
[2017-05-28] MEDS: THIAMINE HCL 100 MG TABLET (FP) PO SCH (21:16)
[2017-05-28] MEDS: traZODone HCL 50 MG TABLET (FP) PO SCH (21:16)
[2017-05-29] MEDS ORDERED: PT OWN MED DRAWER 7, Y5N ONE (03:18)
[2017-05-29 06:28] VITALS: BP 121/73; PULSE 59; TEMP 98
[2017-05-29] MEDS: metFORMIN HCL 500 MG TABLET (FP) PO SCH (06:46)
[2017-05-29] MEDS: GABAPENTIN 100 MG CAPSULE (FP) PO SCH (06:46)
[2017-05-29] MEDS: HYDROCHLOROTHIAZIDE 25 MG TABLET (FP) PO SCH (09:18)
[2017-05-29] MEDS: LIDOCAINE 5% TOPICAL PATCH TP SCH (09:18)
[2017-05-29] MEDS: PRENATAL VITAMINS W/ FOLIC ACID TABLET (FP) PO SCH (09:18)
[2017-05-29] MEDS: BACITRACIN 0.9 GM PACKET TP SCH (09:18)
== END 2017-05-29 09:30 | disposition home or self-care (01) | DRG 895 ==
LOC: YASAS 15:55 → Y3E 18:12
PROVIDERS: ADMIT Psychiatry & Neurology Psychiatry; ATTEND Psychiatry & Neurology Psychiatry
PROC: HZ42ZZZ Group Counseling for Substance Abuse Treatment, Cognitive-Behavioral (ICD-10-PCS; principal; 2017-05-02)
DX: F10.20 Alcohol dependence, uncomplicated (principal); F14.20 Cocaine dependence, uncomplicated; F19.24 Other psychoactive substance dependence with psychoactive substance-induced mood disorder; Z21 Asymptomatic human immunodeficiency virus [HIV] infection status; I10 Essential (primary) hypertension; E11.9 Type 2 diabetes mellitus without complications; Z79.84 Long term (current) use of oral hypoglycemic drugs; E78.5 Hyperlipidemia, unspecified; J44.9 Chronic obstructive pulmonary disease, unspecified; M12.9 Arthropathy, unspecified; Z85.41 Personal history of malignant neoplasm of cervix uteri
CPT/HCPCS: 36415; 80053; 81003; 82962; 85027; 86593; 93005; 93010

== ENCOUNTER 2024-07-30 15:22 | Inpatient (IN) | payer OTHER ==
[2024-07-30 16:14] VITALS: BMI 27.7
[2024-07-30] MEDS ORDERED: BENZONATATE 200 MG CAPSULE PO PRN (16:47)
[2024-07-30] MEDS ORDERED: LOPERAMIDE HCL 2 MG CAPSULE PO PRN (16:47)
[2024-07-30] MEDS ORDERED: MAG HYDROX/AL HYDROX/SIMETH 30 ML UNIT-DOSE CUP PO PRN (16:47)
[2024-07-30] MEDS ORDERED: NALOXONE (NARCAN) HCL 4 MG/0.1 ML SPRAY NS PRN (16:47)
[2024-07-30] MEDS ORDERED: MAGNESIUM HYDROX 2400MG/30ML ORAL SUSPENSION 30 ML CUP PO PRN (16:47)
[2024-07-30] MEDS ORDERED: guaiFENesin 600 MG TABLET.ER (FP) PO PRN (16:47)
[2024-07-30] MEDS ORDERED: POLYETHYLENE GLYCOL (HEALTHYLAX) 3350 17 GM PACKET PO PRN (16:47)
[2024-07-30] MEDS ORDERED: BENZOCAINE/MENTHOL (CHLORASEPTIC ) LOZENGE MM PRN (16:47)
[2024-07-30] MEDS ORDERED: ONDANSETRON *ODT* 4 MG TABLET SL PRN (16:47)
[2024-07-30] MEDS ORDERED: MELATONIN 5 MG TABLETS PO PRN (16:53)
[2024-07-30] MEDS: THIAMINE 100 MG TABLET PO SCH (21:26)
[2024-07-30] MEDS ORDERED: ALBUTEROL SO4 HFA INHALER IH PRN (22:21)
[2024-07-31] MEDS: metFORMIN HCL 500 MG TABLET (FP) PO SCH (06:52)
[2024-07-31] MEDS: PRENATAL VITAMINS W/ FOLIC ACID TABLET (FP) PO SCH (10:35)
[2024-07-31] MEDS: HYDROCHLOROTHIAZIDE 25 MG TABLET (FP) PO SCH (10:35)
[2024-07-31] MEDS: amLODIPine BESYLATE 5 MG TABLET (FP) PO ONE (18:47)
[2024-07-31] MEDS: hydrALAZINE HCL 25 MG TABLET (FP) PO ONE (20:37)
[2024-08-01] MEDS: ACETAMINOPHEN 325 MG TABLET (FP) PO PRN (09:51)
[2024-08-01 14:01] VITALS: BP 190/80; PULSE 79; RESP 16; TEMP 96.9
[2024-08-01] MEDS: amLODIPine BESYLATE 5 MG TABLET (FP) PO SCH (14:37)
== END 2024-08-01 14:35 | disposition other institution (70) | DRG 897 ==
LOC: YASAS 15:22 → Y3N 18:41
PROVIDERS: ADMIT Allergy & Immunology; ATTEND Allergy & Immunology
PROC: HZ2ZZZZ Detoxification Services for Substance Abuse Treatment (ICD-10-PCS; principal; 2024-07-30)
DX: F11.20 Opioid dependence, uncomplicated (principal); F14.20 Cocaine dependence, uncomplicated; F17.210 Nicotine dependence, cigarettes, uncomplicated; Z21 Asymptomatic human immunodeficiency virus [HIV] infection status; E78.2 Mixed hyperlipidemia; I10 Essential (primary) hypertension; E11.9 Type 2 diabetes mellitus without complications; Z79.84 Long term (current) use of oral hypoglycemic drugs; J45.909 Unspecified asthma, uncomplicated; R26.89 Other abnormalities of gait and mobility; Z88.0 Allergy status to penicillin; Z88.8 Allergy status to other drugs, medicaments and biological substances
CPT/HCPCS: 71045-TC-FY; 80305; 80307; 82962; 87811; 93005; 93010